=== PATIENT | male | born 1975 | race Caucasian/White ===

== ENCOUNTER 2018-01-08 14:27 | Emergency (ER) | payer OTHER ==
[2018-01-08 14:44] VITALS: BP 135/92
[2018-01-08] MEDS ORDERED: Tetracaine 0.5% OPTH.SOL 4 ML* 1 DROP BTL RIGHT EYE ONE (14:48)
[2018-01-08] MEDS ORDERED: Fluorescein Sod TOPICAL 0.6* 0.6 MG TEST OPHTHALMIC ONE (14:48)
--- NOTE | 2018-01-08 15:01 | ED ---
Throat Pain/Nasal Congestion - HPI Summary HPI Summary: 42-year-old male presents with foreign body in right eye since last night. He states that was doing yard work and felt something go into his right eye. He states feels like is still there on top of his right eye. He denies any change in vision. does not wear contacts or glasses. eye has been tearing. admits to pain in right eye. Last tetanus is unknown. - History of Current Complaint Chief Complaint: UCEye Time Seen by Provider: 01/08/18 14:48 - Allergies/Home Medications Allergies/Adverse Reactions: Allergies Allergy/AdvReac Type Severity Reaction Status Date / Time No Known Allergies Allergy Verified 01/08/18 14:44 PMH/Surg Hx/FS Hx/Imm Hx Endocrine/Hematology History: Denies: Hx Anticoagulant Therapy Cardiovascular History: Reports: Hx Hypertension Infectious Disease History: No Infectious Disease History: Denies: Hx of Known/Suspected MRSA - /kids/father have mrsa, History Other Infectious Disease, Traveled Outside the [place] in Last 30 Days - Family History Known Family History: Positive: Hypertension - Social History Alcohol Use: Daily Substance Use Type: Reports: None Smoking Status (MU): Never Smoked Tobacco Type: Smokeless Tobacco Review of Systems Negative: Fever Positive: Other - foreign body right eye Negative: Chest Pain Negative: Shortness Of Breath All Other Systems Reviewed And Are Negative: Yes Physical Exam Triage Information Reviewed: Yes Vital Signs On Initial Exam: Initial Vitals Temp Pulse Resp BP Pulse Ox 97.9 F 94 18 135/92 98 01/08/18 14:40 01/08/18 14:40 01/08/18 14:40 01/08/18 14:40 01/08/18 14:40 Vital Signs Reviewed: Yes Appearance: Positive: Well-Appearing Skin: Positive: Warm, Dry Head/Face: Positive: Normal Head/Face Inspection Eyes: Positive: Normal, EOMI, LUDIVINA, Conjunctiva Inflammed, Other: - foreign body at 11 that removed, scratch going from 11-1 position, ENT: Positive: Normal ENT inspection, Pharynx normal, TMs normal Respiratory/Lung Sounds: Positive: Clear to Auscultation, Breath Sounds Present Cardiovascular: Positive: Normal, RRR Musculoskeletal: Positive: Normal Neurological: Positive: Normal Psychiatric: Positive: Normal Procedures - Eye Procedure Alcaine Drops Administered: Yes - scratch from 11 to 1 position 1/2cm long right eye Eye FB Removal: removal w/ cotton swab Eye Irrigated w/ Saline (ccs): 500 - edmund lens Diagnostics - Vital Signs Vital Signs Temp Pulse Resp BP Pulse Ox 01/08/18 14:40 97.9 F 94 18 135/92 98 - Laboratory Lab Statement: Any lab studies that have been ordered have been reviewed, and results considered in the medical decision making process. EENT Course/Dx - Course Course Of Treatment: 42-year-old male presents with foreign body in right eye since last night. He states that was doing yard work and felt something go into his right eye. He states feels like is still there on top of his right eye. He denies any change in vision. does not wear contacts or glasses. eye has been tearing. admits to pain in right eye. Last tetanus is unknown. removed foreign body with q tip. with fluorescein exam has scratch from 11 to 1. did edmund lens and feeling better. will prescribed polytrim and have follow up with optho. also told est care with primary as blood pressure is elevated at the time. patient understand and agrees with plan. - Differential Diagnoses Differential Diagnoses: Conjunctivitis, Corneal Abrasion, Foreign Body - Diagnoses Provider Diagnoses: Foreign body of right eye, Corneal abrasion, Elevated blood pressure reading Discharge - Sign-Out/Discharge Documenting (check all that apply): Discharge/Admit/Transfer - Discharge Plan Condition: Good Disposition: HOME Prescriptions: Polymyx/Trimethoprim OPTH* [Polytrim OPHTH*] 1 drop RIGHT EYE QID #1 btl Patient Education Materials: Corneal Abrasion (ED) Referrals: Joby Cortez MD [Medical Doctor] - [facility] [place] [facility] [Outside] Additional Instructions: Place 1 drop in eye 4 times a day for 5 days Use artificial tears or saline to rinse eye for symptomatic relief Take Tylenol or ibuprofen for pain Follow up with ophthalmology if no improvement in 5 days establish care with primary to follow up as blood pressure is elevated at this visit Return to ED if develop any new or worsening symptoms - Billing Disposition and Condition Condition: GOOD Disposition: HOME
[2018-01-08] MEDS ORDERED: Tetan/Diph/Pertus SYR(Tdap)* 0.5 ML SYR(BOOSTRIX) use SYR IM ONE (15:22)
== END 2018-01-08 15:35 | disposition home or self-care (01) ==
LOC: UCEAST 14:27
DX: T15.01XA Foreign body in cornea, right eye, initial encounter (principal); I10 Essential (primary) hypertension; X58.XXXA Exposure to other specified factors, initial encounter; Y92.096 Garden or yard of other non-institutional residence as the place of occurrence of the external cause
CPT/HCPCS: 90471; 90715; 99213; A9270-GY; G0463